=== PATIENT | female | born 1955 | race Caucasian/White ===

== ENCOUNTER → 2019-07-08 | Outpatient (CLI) | payer BC ==
--- NOTE | 2019-07-11 09:59 | MM ---
Reason for exam: screening (asymptomatic). Last mammogram was performed 8 years and 11 months ago. History: Patient is postmenopausal. Family history of breast cancer in paternal grandmother at age 80. Silicone gel implants in both breasts, 2009. Retro-pectoral saline implants in both breasts, October 2003. Stereotactic core biopsy of the right breast, January 26, 2003. Benign excisional biopsy of the right breast, June 04, 1998. Took hormonal contraceptives for 6 months. Took estrogen for 1 year 6 months. Took progesterone for 1 year 6 months. Took other hormone for 1 year 6 months. Physical Findings: A clinical breast exam by your physician is recommended on an annual basis and results should be correlated with mammographic findings. MG 3D Screen Mammo Imp/Cad Bilateral CC and MLO view(s) were taken. Prior study comparison: August 16, 2010, bilateral diagnostic digital mammog. December 01, 2005, bilateral diagnostic workup mammogram. There are scattered fibroglandular densities. No significant changes when compared with prior studies. ASSESSMENT: Benign, BI-RAD 2 RECOMMENDATION: Routine screening mammogram of both breasts in 1 year.
== END ==
LOC: RADMAMWWP 10:24
PROVIDERS: ATTEND Obstetrics & Gynecology
DX: Z12.31 Encounter for screening mammogram for malignant neoplasm of breast (principal); Z98.82 Breast implant status; Z80.3 Family history of malignant neoplasm of breast
CPT/HCPCS: 77063; 77067